=== PATIENT | female | born 1950 | race Two or more races ===

== ENCOUNTER 2018-12-12 13:10 | Inpatient (IN) | payer OTHER ==
[~2018-12-12] VITALS: Ht 149.9 cm; Wt 81.6 kg
[~2018-12-12 13:10] MED LIST: ATACAND32 MG; GLUCOTROL10 MG; JANUVIA50 MG; LIPITOR20 MG; METFORMIN HCL750 MG; NORVASC2.5 MG; SINGULAIR10 MG; SYNTHROID75 MCG
[2018-12-12] MEDS ORDERED: LASIX40 MG (14:11)
[2018-12-12] MEDS ORDERED: TOPROL XL25 MG (14:11)
[2018-12-12] MEDS ORDERED: ISOSORBIDE DINI20 MG (14:12)
[2018-12-12] MEDS ORDERED: ALDACTONE25 MG (14:12)
== END 2018-12-23 17:39 | DRG 190 ==
LOC: ER 13:10 → MEDI 21:52
PROVIDERS: ADMIT Internal Medicine
PROC: 3E0F7GC Introduction of Other Therapeutic Substance into Respiratory Tract, Via Natural or Artificial Opening (ICD-10-PCS; principal; 2018-12-12)
PROC: 4A033R1 Measurement of Arterial Saturation, Peripheral, Percutaneous Approach (ICD-10-PCS; 2018-12-12)
DX: J44.1 Chronic obstructive pulmonary disease with (acute) exacerbation (principal); J80 Acute respiratory distress syndrome; J98.11 Atelectasis; L03.116 Cellulitis of left lower limb; L03.115 Cellulitis of right lower limb; N17.8 Other acute kidney failure; Z99.81 Dependence on supplemental oxygen; I11.0 Hypertensive heart disease with heart failure; E66.01 Morbid (severe) obesity due to excess calories; J44.0 Chronic obstructive pulmonary disease with (acute) lower respiratory infection; E11.65 Type 2 diabetes mellitus with hyperglycemia; Z79.4 Long term (current) use of insulin; I25.118 Atherosclerotic heart disease of native coronary artery with other forms of angina pectoris; E11.22 Type 2 diabetes mellitus with diabetic chronic kidney disease; I12.9 Hypertensive chronic kidney disease with stage 1 through stage 4 chronic kidney disease, or unspecified chronic kidney disease; N18.2 Chronic kidney disease, stage 2 (mild); E03.8 Other specified hypothyroidism; J20.9 Acute bronchitis, unspecified